=== PATIENT | male | born 2000 | race African-American/Black ===

== ENCOUNTER 2020-07-15 15:22 | Emergency (ER) | payer MEDICAID, OTHER ==
[~2020-07-15] VITALS: Ht 190.5 cm; Wt 90.7 kg
[2020-07-15 15:49] VITALS: BP 137/76
== END 2020-07-15 17:00 | disposition home or self-care (01) ==
LOC: ER 15:22
DX: S90.121A Contusion of right lesser toe(s) without damage to nail, initial encounter (principal); W22.8XXA Striking against or struck by other objects, initial encounter; Y93.02 Activity, running; Y92.89 Other specified places as the place of occurrence of the external cause; Y99.8 Other external cause status
CPT/HCPCS: 73630; 99283; J7030